=== PATIENT | female | born 1995 ===

== ENCOUNTER 2020-04-12 | Observation (INO) ==
[2020-04-12 00:58] LABS: Bacteria,Urine Few per hpf (None-Few); Bilirubin,Urine Negative (Negative); Blood,Urine Negative (Negative); Clarity,Urine Clear (Clear); Color,Urine Colorless (Yellow); Glucose,Urine (UA) Normal (Normal); Ketones,Urine Negative (Negative); Leukocyte Esterase,Urine Large (Negative); Mucus,Urine Few per lpf (None-Few); Nitrite,Urine Negative (Negative); Protein,Urine Negative (Neg-Trace); Squamous Epithelial Cell,Urine Few per hpf (None-Few); Urobilinogen,Urine Normal (Normal); WBC,Urine 0-3 per hpf (0-3)
== END 2020-04-12 03:40 | disposition home or self-care (01) ==
LOC: 1NENULAB
PROVIDERS: ADMIT Student in an Organized Health Care Education/Training Program; ATTEND Student in an Organized Health Care Education/Training Program

== ENCOUNTER → 2020-05-27 01:59 | Observation (INO) ==
[2020-05-27 00:46] LABS: Bilirubin,Urine Negative (Negative); Blood,Urine Negative (Negative); Clarity,Urine Turbid (Clear); Color,Urine Light-Yellow (Yellow); Glucose,Urine (UA) Normal (Normal); Ketones,Urine Negative (Negative); Leukocyte Esterase,Urine Negative (Negative); Nitrite,Urine Negative (Negative); Protein,Urine Trace mg/dL (Neg-Trace); RBC,Urine 0-3 per hpf (0-3); Specific Gravity,Urine 1.013 (1.010-1.025); Urobilinogen,Urine Normal (Normal); WBC,Urine 0-3 per hpf (0-3)
[2020-05-27 00:47] LABS: Amorphous Sediment,Urine Few per hpf (None-Few); Bacteria,Urine Few per hpf (None-Few); Mucus,Urine Few per lpf (None-Few); Squamous Epithelial Cell,Urine Moderate per hpf (None-Few)
[2020-05-27 00:52] LABS: Amphetamine Screen,Urine Negative ng/mL (Cutoff=1000); Barbiturate Screen,Urine Negative ng/mL (Cutoff=200); Benzodiazepines Screen,Urine Negative ng/mL (Cutoff=200); Cannabinoid Screen,Urine Negative ng/mL (Cutoff = 50); Cocaine Screen,Urine Negative ng/mL (Cutoff= 300); Opiate Screen,Urine Negative ng/mL (Cutoff=300); Phencyclidine Screen,Urine Negative ng/mL (Cutoff=25)
== END | disposition home or self-care (01) ==
LOC: 1NENULAB
PROVIDERS: ADMIT Student in an Organized Health Care Education/Training Program; ATTEND Student in an Organized Health Care Education/Training Program

== ENCOUNTER 2020-05-29 09:25 | Inpatient (IN) ==
[2020-05-29] MEDS ORDERED: Ondansetron 4 MG/2 ML VIAL IVP PRN (10:22)
[2020-05-29] MEDS ORDERED: Ringers Solution, Lactated 1,000 ML IVC ONE ×2 (10:22→19:30)
[2020-05-29] MEDS ORDERED: CeFAZolin 2,000 MG/50 ML BAG IVPB ONE ×2 (10:22→19:30)
[2020-05-29] MEDS ORDERED: Metoclopramide 10 MG/2 ML VIAL IVP ONE ×2 (10:22→19:30)
[2020-05-29] MEDS ORDERED: Naloxone 0.4 MG/ML INJ IVP PRN (10:22)
[2020-05-29] MEDS ORDERED: Famotidine 20 MG/2 ML VIAL IVP ONE ×2 (10:22→19:30)
[2020-05-29] MEDS ORDERED: Ringers Solution, Lactated 1,000 ML IVC SCH (10:30)
[2020-05-29 10:59] LABS: Basophils % 0.2 %; Eosinophils # 0.1 K/mcL (0.0-0.6); Eosinophils % 0.5 %; Hematocrit 25.5 % (35.3-44.9); Hemoglobin 7.9 g/dL (11.5-15.4); Immature Granulocytes % 1.5 % (0-4); Lymphocytes # 1.5 K/mcL (0.6-4.6); Lymphocytes % 15.2 %; Mean Corpuscular Hemoglobin 25.7 pg (28.0-33.3); Mean Corpuscular Volume 83.1 fL (83.0-100.0); Mean Platelet Volume 8.8 fL (9.4-12.4); Monocytes # 0.6 K/mcL (0.0-1.3); Monocytes % 5.8 %; Neutrophils # 7.4 K/mcL (1.6-8.9); Platelet Count 361 K/mcL (140-400); Red Blood Count 3.07 M/mcL (3.82-4.97); Red Cell Distribution Width 15.5 % (11.5-14.5); Segmented Neutrophils % 76.8 %; White Blood Count 9.6 K/mcL (4.3-11.1)
[2020-05-29 11:16] LABS: Alanine Aminotransferase 7 Units/L (7-52); Aspartate Amino Transferase 14 Units/L (13-39); BUN/Creatinine Ratio 14 (6-26); Blood Urea Nitrogen 7 mg/dL (6-20); Lactate Dehydrogenase 149 Units/L (140-271); eGFR For African Americans > 60 (> 60); eGFR For Non-African Americans > 60 (> 60)
[2020-05-29 11:31] LABS: Amphetamine Screen,Urine Negative ng/mL (Cutoff=1000); Barbiturate Screen,Urine Negative ng/mL (Cutoff=200); Benzodiazepines Screen,Urine Negative ng/mL (Cutoff=200); Cannabinoid Screen,Urine Negative ng/mL (Cutoff = 50); Cocaine Screen,Urine Negative ng/mL (Cutoff= 300); Creatinine,Urine 136 mg/dL; Opiate Screen,Urine Negative ng/mL (Cutoff=300); Phencyclidine Screen,Urine Negative ng/mL (Cutoff=25); Protein/Creatinine Ratio,Urine 0.34 mg/mg (0.00-0.20)
[2020-05-29] MEDS ORDERED: *HR* Promethazine 25 MG/ML VIAL IVP PRN (20:29)
[2020-05-29] MEDS ORDERED: *HR* HYDROmorphone PF 0.5 MG/0.5 ML SYRINGE IVP PRN (20:29)
[2020-05-29] MEDS ORDERED: Ondansetron 4 MG/2 ML VIAL IVP ONE (20:29)
[2020-05-29] MEDS ORDERED: *HR* OxyCODONE Immed Rel 5 MG TABLET PO PRN (20:29)
[2020-05-29] MEDS ORDERED: *HR* FentaNYL (PF) 100 MCG/2 ML VIAL ONE (20:49)
[2020-05-29] MEDS ORDERED: *HR* Morphine Sulfate/PF 10 MG/10 ML AMPUL ONE (20:50)
[2020-05-29] MEDS ORDERED: *HR* Oxytocin 10 UNIT/ML VIAL IM ONE (20:50)
[2020-05-29] MEDS ORDERED: Ringers Solution, Lactated 1,000 ML ONE (20:50)
[2020-05-29] MEDS ORDERED: EPHEDrine 50 MG/ML VIAL ONE (21:06)
[2020-05-29] MEDS ORDERED: Ondansetron 4 MG/2 ML VIAL ONE (21:07)
[2020-05-29] MEDS ORDERED: Acetaminophen IV 1,000 MG/100 ML INFUS..BTL ONE (21:07)
[2020-05-29] MEDS ORDERED: Ketamine *HR* 500 MG/10 ML MDV ONE (22:00)
[2020-05-29] MEDS ORDERED: Oxytocin 20 units/ LR 1000 mL 20 UNIT/1,000 ML BAG IVC ONE ×2 (22:10→23:59)
[2020-05-30] MEDS ORDERED: *HR* HYDROmorphone (PF) 1 MG/ML SYRINGE IVP PRN (01:19)
[2020-05-30] MEDS ORDERED: Ondansetron 4 MG/2 ML VIAL IVP PRN (01:19)
[2020-05-30] MEDS ORDERED: Metoclopramide 10 MG/2 ML VIAL IVP PRN (01:19)
[2020-05-30] MEDS ORDERED: Sennosides 8.6 MG TABLET PO PRN (01:19)
[2020-05-30] MEDS ORDERED: Simethicone 80 MG TAB.CHEW PO PRN (01:19)
[2020-05-30] MEDS ORDERED: Oxytocin 20 units/ LR 1000 mL 20 UNIT/1,000 ML BAG IVC SCH (01:19)
[2020-05-30] MEDS ORDERED: Rho Immune Globulin 1,500 UNIT SYRINGE IM ONE (01:19)
[2020-05-30] MEDS: ceFAZolin 1,000 MG in Water for inj. (sterile) 10 ML IVP SCH ×3 (01:55→17:57)
[2020-05-30] MEDS: Ibuprofen 600 MG TABLET PO PRN ×2 (01:55→20:22)
[2020-05-30 05:24] LABS: Basophils % 0.2 %; Eosinophils % 0.2 %; Hematocrit 23.1 % (35.3-44.9); Hemoglobin 7.1 g/dL (11.5-15.4); Immature Granulocytes % 0.8 % (0-4); Lymphocytes # 1.7 K/mcL (0.6-4.6); Lymphocytes % 14.9 %; Mean Corpuscular HGB Conc 30.7 g/dL (31.6-35.5); Mean Corpuscular Hemoglobin 26.2 pg (28.0-33.3); Mean Corpuscular Volume 85.2 fL (83.0-100.0); Mean Platelet Volume 9.1 fL (9.4-12.4); Monocytes # 0.5 K/mcL (0.0-1.3); Monocytes % 4.4 %; Neutrophils # 9.2 K/mcL (1.6-8.9); Platelet Count 293 K/mcL (140-400); Red Blood Count 2.71 M/mcL (3.82-4.97); Red Cell Distribution Width 15.5 % (11.5-14.5); Segmented Neutrophils % 79.5 %; White Blood Count 11.6 K/mcL (4.3-11.1)
[2020-05-30] MEDS: Prenatal Vit/FA 1 EACH TABLET PO SCH (09:11)
[2020-05-30] MEDS: *HR* OxyCODONE/APAP 5/325 TABLET PO PRN ×3 (12:02→22:15)
[2020-05-31] MEDS: *HR* OxyCODONE/APAP 5/325 TABLET PO PRN ×4 (06:26→23:37)
[2020-05-31] MEDS: Prenatal Vit/FA 1 EACH TABLET PO SCH (07:33)
[2020-05-31] MEDS: Ibuprofen 600 MG TABLET PO PRN ×2 (13:46→20:51)
[2020-06-01] MEDS: *HR* OxyCODONE/APAP 5/325 TABLET PO PRN ×4 (04:38→20:03)
[2020-06-01] MEDS: Ibuprofen 600 MG TABLET PO PRN ×2 (07:41→17:54)
[2020-06-01] MEDS: Prenatal Vit/FA 1 EACH TABLET PO SCH (07:41)
[2020-06-01 14:03] LABS: Basophils % 0.2 %; Eosinophils # 0.2 K/mcL (0.0-0.6); Eosinophils % 1.7 %; Hematocrit 23.7 % (35.3-44.9); Immature Granulocytes % 1.1 % (0-4); Lymphocytes # 1.6 K/mcL (0.6-4.6); Mean Corpuscular HGB Conc 29.5 g/dL (31.6-35.5); Mean Corpuscular Hemoglobin 25.5 pg (28.0-33.3); Mean Corpuscular Volume 86.5 fL (83.0-100.0); Mean Platelet Volume 8.7 fL (9.4-12.4); Monocytes # 0.5 K/mcL (0.0-1.3); Monocytes % 4.5 %; Neutrophils # 8.2 K/mcL (1.6-8.9); Nucleated Red Blood Cells 0.2 /100 WBC (0); Platelet Count 425 K/mcL (140-400); Red Blood Count 2.74 M/mcL (3.82-4.97); Segmented Neutrophils % 77.5 %; White Blood Count 10.6 K/mcL (4.3-11.1)
[2020-06-02] MEDS: *HR* OxyCODONE/APAP 5/325 TABLET PO PRN ×2 (00:47→08:15)
[2020-06-02] MEDS: Ibuprofen 600 MG TABLET PO PRN (05:43)
[2020-06-02 08:04] VITALS: BP 137/91
[2020-06-02] MEDS: Prenatal Vit/FA 1 EACH TABLET PO SCH (08:16)
== END 2020-06-02 14:47 | disposition home or self-care (01) | DRG 540 ==
LOC: 1NENULAB 09:25 → 1NENUOBS 05-30 02:01
PROVIDERS: ADMIT Obstetrics & Gynecology; ATTEND Obstetrics & Gynecology